=== PATIENT | female | born 2000 | race Caucasian/White ===

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

== ENCOUNTER 2022-07-02 12:29 | Emergency (ER) | payer OTHER ==
[~2022-07-02] VITALS: Ht 160 cm; Wt 81.8 kg
[~2022-07-02 12:29] MED LIST changes: +NAPROXEN375 MG PO
[2022-07-02] MEDS ORDERED: PAXLOVID PO (13:49)
[2022-07-02 13:53] VITALS: BP 121/68
== END 2022-07-02 14:04 | disposition home or self-care (01) ==
LOC: ED 12:29
DX: U07.1 COVID-19 (principal); J02.9 Acute pharyngitis, unspecified; M25.562 Pain in left knee; F17.200 Nicotine dependence, unspecified, uncomplicated

== ENCOUNTER 2022-07-29 18:34 | Emergency (ER) | payer OTHER ==
[~2022-07-29] VITALS: Ht 160 cm; Wt 81.0 kg
[~2022-07-29 18:34] MED LIST changes: +PAXLOVID PO
[2022-07-29 18:41] VITALS: BP 128/75
== END 2022-07-29 19:20 | disposition left against medical advice (07) | DRG 951 ==
LOC: ED 18:34 → LWOBS 19:20
DX: Z53.21 Procedure and treatment not carried out due to patient leaving prior to being seen by health care provider (principal)

== ENCOUNTER 2022-07-30 13:36 | Emergency (ER) | payer OTHER ==
[~2022-07-30] VITALS: Ht 160 cm; Wt 82.0 kg
[2022-07-30 13:47] VITALS: BP 81/62
[2022-07-30 13:50] VITALS: BP 117/52
[2022-07-30 14:01] VITALS: BP 81/46
[2022-07-30 14:44] VITALS: BP 118/72
== END 2022-07-30 14:49 | disposition home or self-care (01) ==
LOC: ED 13:36
DX: M25.562 Pain in left knee (principal); F17.200 Nicotine dependence, unspecified, uncomplicated

== ENCOUNTER 2022-10-17 19:23 | Emergency (ER) | payer OTHER ==
[~2022-10-17] VITALS: Ht 160 cm; Wt 81.0 kg
[2022-10-17] MEDS ORDERED: BENZONATATE200 MG PO ×2 (20:39→20:44)
[2022-10-17 21:00] VITALS: BP 130/78
== END 2022-10-17 21:00 | disposition home or self-care (01) ==
LOC: ED 19:23
DX: J02.9 Acute pharyngitis, unspecified (principal); F17.200 Nicotine dependence, unspecified, uncomplicated; Z20.822 Contact with and (suspected) exposure to COVID-19

== ENCOUNTER 2024-01-15 08:54 | Emergency (ER) | payer OTHER ==
[~2024-01-15] VITALS: Ht 157.5 cm; Wt 93.0 kg
[~2024-01-15 08:54] MED LIST changes: +BENZONATATE200 MG PO; +ZOFRAN4 MG/TAB PO
[2024-01-15 09:11] VITALS: BP 114/82
[2024-01-15 09:31] VITALS: BP 82/57
== END 2024-01-15 09:41 | disposition home or self-care (01) ==
LOC: ED 08:54
DX: O26.892 Other specified pregnancy related conditions, second trimester (principal); R10.11 Right upper quadrant pain; O36.8120 Decreased fetal movements, second trimester, not applicable or unspecified; Z3A.23 23 weeks gestation of pregnancy

== ENCOUNTER 2024-02-24 14:34 | Emergency (ER) | payer OTHER ==
[2024-02-24] VITALS (7 sets, daily range): BP systolic 99–117; BP diastolic 58–78
[~2024-02-24] VITALS: Ht 157.5 cm; Wt 95.7 kg
[2024-02-24 15:27] LABS: URINE BILIRUBIN - DIPSTICK Negative (NEGATIVE); URINE BLOOD DIPSTICK Negative (NEGATIVE); URINE GLUCOSE - DIPSTICK Negative (NEGATIVE); URINE KETONE Negative (NEGATIVE); URINE LEUK ESTERASE Negative (NEGATIVE); URINE NITRITE - DIPSTICK Negative (Negative); URINE PROTEIN - DIPSTICK Negative (NEG-TRACE); URINE UROBILINOGEN - DIPSTICK 0.2 E.U./dL (0.2)
[2024-02-24 15:28] LABS: BASO% 0.1 % (0-3); EOS% 3.4 % (0-8); HEMATOCRIT 37.6 % (37.0-47.0); HEMOGLOBIN 12.4 g/dl (12.0-16.0); IMMATURE GRANULOCYTES 0.7 % (0.0-5.0); LYMPH% 23.4 % (15-41); MEAN CELL VOLUME 90.2 fL CALC (80.0-100.0); MEAN CORPUSCULAR HGB 29.7 pG CALC (26.0-32.0); MONO% 8.4 % (2-13); NEUT# 5.33 thou/uL (2.00-7.15); RED BLOOD COUNT 4.17 mill/uL (4.20-5.60); RED CELL DISTRI WIDTH 14.4 % (11.5-15.5)
[2024-02-24 15:28] LABS: URINE COLOR Yellow
[2024-02-24 15:42] LABS: ALBUMIN 3.8 g/dL (3.2-5.0); CREATININE 0.5 mg/dL (0.5-1.0); POTASSIUM 3.8 mmol/l (3.5-5.1); TOTAL PROTEIN 6.7 g/dL (6.3-8.2)
[2024-02-24 15:43] LABS: BILIRUBIN, TOTAL 0.3 mg/dL (0.02-1.3)
== END 2024-02-24 16:18 | disposition home or self-care (01) ==
LOC: ED 14:34
PROVIDERS: Family Medicine
DX: O26.893 Other specified pregnancy related conditions, third trimester (principal); R10.84 Generalized abdominal pain; R07.9 Chest pain, unspecified; Z3A.30 30 weeks gestation of pregnancy

== ENCOUNTER 2024-05-01 05:23 | Emergency (ER) | payer OTHER ==
[~2024-05-01] VITALS: Ht 157.5 cm; Wt 98.0 kg
[2024-05-01] MEDS ORDERED: SODIUM CHLORIDE 0.9% 1,000 ML IV ONE (05:40)
[2024-05-01] MEDS ORDERED: LACTATED RINGER'S 1,000 ML IV ONE ×2 (06:10→06:50)
[2024-05-01 06:25] LABS: BASO% 0.2 % (0-3); EOS% 3.2 % (0-8); HEMATOCRIT 41.4 % (37.0-47.0); IMMATURE GRANULOCYTES 0.6 % (0.0-5.0); LYMPH% 28.9 % (15-41); MEAN CORPUSCULAR HGB 30.4 pG CALC (26.0-32.0); MEAN CORPUSCULAR HGB CONC 33.8 g/dL CAL (32.0-36.0); MONO% 9.3 % (2-13); NEUT# 4.95 thou/uL (2.00-7.15); NEUT% 57.8 % (42-76); RED BLOOD COUNT 4.6 mill/uL (4.20-5.60); RED CELL DISTRI WIDTH 13.9 % (11.5-15.5)
[2024-05-01 06:42] LABS: ALBUMIN 3.7 g/dL (3.2-5.0); CREATININE 0.5 mg/dL (0.5-1.0); POTASSIUM 4.1 mmol/l (3.5-5.1); TOTAL PROTEIN 6.7 g/dL (6.3-8.2)
[2024-05-01] MEDS ORDERED: FAMOTIDINE 10MG/ML 2ML SDV IV ONE (06:50)
[2024-05-01] MEDS ORDERED: METOCLOPRAMIDE HCL 10 MG/2 ML SDV IV ONE (06:50)
[2024-05-01] MEDS ORDERED: OXYTOCIN 20 UNITS in LACTATED RINGER'S 1,000 ML IV ONE (06:50)
[2024-05-01] MEDS ORDERED: ONDANSETRON HCl 4 MG/2 ML SDV IV ONE (06:50)
[2024-05-01 06:52] LABS: BILIRUBIN, TOTAL 0.5 mg/dL (0.02-1.3)
[2024-05-01] MEDS ORDERED: LIDOcaine HCl 1% (Local Anesth.) 20 ML VIAL ONE (07:17)
[2024-05-01 10:40] VITALS: BP 123/81
== END 2024-05-01 10:41 | disposition short-term general hospital (02) ==
LOC: ED 05:23
PROVIDERS: Family Medicine
DX: O70.1 Second degree perineal laceration during delivery (principal); Z3A.39 39 weeks gestation of pregnancy; Z37.0 Single live birth

== ENCOUNTER 2024-07-08 12:53 | Emergency (ER) | payer OTHER ==
[~2024-07-08] VITALS: Ht 157.5 cm; Wt 90.7 kg
[2024-07-08 14:00] VITALS: BP 130/84
[2024-07-08] MEDS ORDERED: CEPHALEXIN500 M1 PO (14:01)
[2024-07-08 14:10] VITALS: BP 130/84
== END 2024-07-08 14:16 | disposition home or self-care (01) ==
LOC: ED 12:53
DX: L03.116 Cellulitis of left lower limb (principal); S80.812A Abrasion, left lower leg, initial encounter; W45.8XXA Other foreign body or object entering through skin, initial encounter